=== PATIENT | female | born 1960 | race Asian ===

== ENCOUNTER 2017-09-28 18:56 | Emergency (ER) | payer SELFPAY ==
[~2017-09-28] VITALS: Ht 157.5 cm; Wt 63.6 kg
[2017-09-28] MEDS ORDERED: OS500 PO (19:18)
[2017-09-28] MEDS ORDERED: GLUC500 PO (19:18)
[2017-09-28] MEDS ORDERED: LOSA50TA37 PO (19:18)
[2017-09-28] MEDS ORDERED: OMEG-135 PO (19:18)
[2017-09-28 21:59] VITALS: BP 151/84
== END 2017-09-28 22:04 | disposition home or self-care (01) ==
LOC: EMS 18:57
DX: J00 Acute nasopharyngitis [common cold] (principal); I10 Essential (primary) hypertension
CPT/HCPCS: 99283